=== PATIENT | male | born 1960 | race Caucasian/White ===

== ENCOUNTER → 2016-10-24 | Outpatient (CLI) | payer OTHER | LOC: FIMAGING 11:09 → EDSTATUS 11:10 | PROVIDERS: ATTEND Physical Medicine & Rehabilitation Neuromuscular Medicine | DX: M43.16 Spondylolisthesis, lumbar region (principal) ==

== ENCOUNTER → 2017-01-29 | Outpatient (CLI) | payer OTHER | LOC: FIMAGING 12:14 | PROVIDERS: ATTEND Orthopaedic Surgery Orthopaedic Surgery of the Spine | DX: Z01.818 Encounter for other preprocedural examination (principal); M51.36 Other intervertebral disc degeneration, lumbar region; M43.16 Spondylolisthesis, lumbar region ==

== ENCOUNTER 2017-02-14 17:15 | Observation (INO) | payer OTHER ==
--- NOTE | 2017-02-14 17:29 | EDPHY ---
H & P Time Seen by Provider: 02/14/17 17:26 HPI/ROS: Chief complaint. Overdose and altered mental status HPI. 56-year-old male here by EMS after her taking too many pain medications and another medication that the EMS brought with them called red maeng da which is marked not for human consumption. The patient had back surgery 4 days ago. He has been taking OxyContin 3 pills at a time every 3 hours. He has also been using Red Maeng Da. His family noticed that he was lethargic and really not responsive and not breathing very well. EMS found the patient have a pulse ox of 52% on room air. He was given Narcan total of 1 mg with good response and improvement of breathing. He arrived is still with a nasal trumpet and supplemental oxygen. His family says no other medical problems other than depression and he takes Effexor. His does not think that he is taken too many of those medications. ROS Constitutional. Generalized weakness Eyes. no problems with vision ENT. no sore throat, no nasal drainage Cardiovascular. no chest pain Respiratory. Decreased respirations Abdominal. no abdominal pain, no nausea/vomiting, no diarrhea . no problems urinating MS. no calf pain/swelling, no neck/back pain, no joint pain Skin. no rash Lymph. no swollen glands Neuro. Currently unable to walk or stand Past Medical/Surgical History: Recent back surgery and depression Social History: , no alcohol Smoking Status: Unknown if ever smoked Physical Exam: General Appearance: Alert but lethargic well-developed male with vital signs showing O2 saturation of 88% on 2 L. Moderate distress Eyes: Pupils equal and round no pallor or injection. ENT, Mouth: Mucous membranes are moist. Respiratory: No retractions but mild inspiratory expiratory rhonchi Cardiovascular: Regular rate and rhythm. Gastrointestinal: Abdomen is soft and nontender, no masses, bowel sounds normal. Neurological: Awake and alert, sensory and motor exams grossly normal. Skin: Warm and dry, no rashes. Musculoskeletal: Neck is supple nontender. Extremities symmetrical, full range of motion. Psychiatric: Patient is oriented X 3, there is no agitation. Constitutional: Initial Vital Signs Temperature (C) 36.9 C 02/14/17 17:15 Heart Rate 112 H 02/14/17 17:15 Respiratory Rate 28 H 02/14/17 17:15 Blood Pressure 149/96 H 02/14/17 17:15 O2 Sat (%) 88 L 02/14/17 17:15 O2 Delivery Mode Oxymask O2 (L/minute) 6 Allergies/Adverse Reactions: No Known Allergies Allergy (Unverified 02/14/17 17:20) Home Medications: Medication Instructions Recorded Effexor 02/14/17 Gabapentin 02/14/17 Oxycodone HCl 02/14/17 Valium 02/14/17 Wellbutrin Sr 02/14/17 morphINE 02/14/17 Medical Decision Making - Diagnostics EKG Interpretation: EKG interpreted by me shows sinus tachycardia with normal interval and axis. QRS is normal there is no significant ST elevation or depression. There is T- wave inversion in lead 3. Rate is 108 Imaging Results: One-view chest x-ray interpreted by me as normal. It is poor inspiration but I do not see any pneumonia Procedures: IV normal saline, monitor. Respiratory therapy to help with oxygenation. He is given further Narcan with improvement ED Course/Re-evaluation: --poison Control-- Stevan Saleh Poison Control will research this substance and call me back [facility] drug of concern--opioid like effects; watch for seizures, V/D, coma ; resolve within 6 hours, supportive care Patient's temperature was initially normal. And then on recheck is 38.6. Sepsis workup. Tylenol for fever Urine toxicology is positive for benzodiazepine, opiates, THC Patient was unable to urinate. Bladder scan shows 700 mL in his bladder. Quiles catheter is placed Patient is log-rolled over and his surgical incision is examined. Staple line is intact. No evidence for infection I have consulted and discussed the case with Dr. Duarte, hospitalist, who agrees to the admission I consulted and discussed the case with Dr. Rubin, fisheries management biologist, who will see the patient in the ICU I have placed a phone call to Dr. Lemus, patient's back surgeon though the phone call has not been returned yet Differential Diagnosis: Significant hypoxia probably secondary to opioid ingestion. No evidence for pneumonia. Further ingestion of Stevan Saleh which is a synthetic opioid. He has acute urinary retention. He has a fever. No evidence for sepsis. He has elevated troponin with a nonacute appearing EKG. Critical Care Time: Critical care time exclusive procedures 50 minutes - Data Points Laboratory Results: Laboratory Results 02/14/17 17:26 02/14/17 17:26 02/14/17 02/14/17 02/14/17 18:00 17:46 17:40 WBC RBC Hgb Hct MCV MCH MCHC RDW Plt Count MPV Neut % (Auto) Lymph % (Auto) Thomas % (Auto) Eos % (Auto) Baso % (Auto) Nucleat RBC Rel Count Absolute Neuts (auto) Absolute Lymphs (auto) Absolute Monos (auto) Absolute Eos (auto) Absolute Basos (auto) Absolute Nucleated RBC Immature Gran % Immature Gran # PT INR APTT VBG Lactic Acid 1.0 mmol/L mmol/L (0.7-2.1) Sodium Potassium Chloride Carbon Dioxide Anion Gap BUN Creatinine Estimated GFR Glucose Calcium Troponin I Urine Color YELLOW Urine Appearance HAZY Urine pH 5.0 (5.0-7.5) Ur Specific [place] 1.021 (1.002-1.030) Urine Protein 1+ H (NEGATIVE) Urine Ketones NEGATIVE (NEGATIVE) Urine Blood NEGATIVE (NEGATIVE) Urine Nitrate NEGATIVE (NEGATIVE) Urine Bilirubin NEGATIVE (NEGATIVE) Urine Urobilinogen NEGATIVE EU EU (0.2-1.0) Ur Leukocyte Esterase NEGATIVE (NEGATIVE) Urine RBC 3-5 /hpf H /hpf (0-3) Urine WBC 1-3 /hpf /hpf (0-3) Ur Epithelial Cells NONE SEEN /lpf /lpf (NONE-1+) Urine Bacteria TRACE /hpf H /hpf (NONE SEEN) Urine Mucus TRACE /lpf /lpf (NONE-1+) Urine Glucose NEGATIVE (NEGATIVE) Urine Opiates Screen NON-NEGATIVE H (NEGATIVE) Urine Barbiturates NEGATIVE (NEGATIVE) Ur Phencyclidine Scrn NEGATIVE (NEGATIVE) Ur Amphetamine Screen NEGATIVE (NEGATIVE) U Benzodiazepines Scrn NON-NEGATIVE H (NEGATIVE) Urine Cocaine Screen NEGATIVE (NEGATIVE) U Marijuana (THC) Screen NON-NEGATIVE H (NEGATIVE) 02/14/17 02/14/17 02/14/17 17:26 17:26 17:26 WBC 7.51 10^3/uL 10^3/uL (3.80-9.50) RBC 3.70 10^6/uL L 10^6/uL (4.40-6.38) Hgb 10.3 g/dL L g/dL (13.7-17.5) Hct 31.6 % L % (40.0-51.0) MCV 85.4 fL fL (81.5-99.8) MCH 27.8 pg L pg (27.9-34.1) MCHC 32.6 g/dL g/dL (32.4-36.7) RDW 13.9 % % (11.5-15.2) Plt Count 268 10^3/uL 10^3/uL (150-400) MPV 10.0 fL fL (8.7-11.7) Neut % (Auto) 74.6 % H % (39.3-74.2) Lymph % (Auto) 13.3 % L % (15.0-45.0) Thomas % (Auto) 10.4 % % (4.5-13.0) Eos % (Auto) 0.1 % L % (0.6-7.6) Baso % (Auto) 0.7 % % (0.3-1.7) Nucleat RBC Rel Count 0.0 % % (0.0-0.2) Absolute Neuts (auto) 5.60 10^3/uL 10^3/uL (1.70-6.50) Absolute Lymphs (auto) 1.00 10^3/uL 10^3/uL (1.00-3.00) Absolute Monos (auto) 0.78 10^3/uL 10^3/uL (0.30-0.80) Absolute Eos (auto) 0.01 10^3/uL L 10^3/uL (0.03-0.40) Absolute Basos (auto) 0.05 10^3/uL 10^3/uL (0.02-0.10) Absolute Nucleated RBC 0.00 10^3/uL 10^3/uL (0-0.01) Immature Gran % 0.9 % % (0.0-1.1) Immature Gran # 0.07 10^3/uL 10^3/uL (0.00-0.10) PT 14.7 SEC SEC (12.0-15.0) INR 1.15 (0.83-1.16) APTT 31.7 SEC SEC (23.0-38.0) VBG Lactic Acid Sodium 131 mEq/L L mEq/L (134-144) Potassium 4.5 mEq/L mEq/L (3.5-5.2) Chloride 94 mEq/L L mEq/L (97-110) Carbon Dioxide 25 mEq/l mEq/l (22-31) Anion Gap 12 mEq/L mEq/L (8-16) BUN 18 mg/dL mg/dL (7-23) Creatinine 1.3 mg/dL mg/dL (0.7-1.3) Estimated GFR 57 Glucose 195 mg/dL H mg/dL (70-100) Calcium 8.4 mg/dL L mg/dL (8.5-10.4) Troponin I 0.124 ng/mL H ng/mL (0-0.034) Urine Color Urine Appearance Urine pH Ur Specific [place] Urine Protein Urine Ketones Urine Blood Urine Nitrate Urine Bilirubin Urine Urobilinogen Ur Leukocyte Esterase Urine RBC Urine WBC Ur Epithelial Cells Urine Bacteria Urine Mucus Urine Glucose Urine Opiates Screen Urine Barbiturates Ur Phencyclidine Scrn Ur Amphetamine Screen U Benzodiazepines Scrn Urine Cocaine Screen U Marijuana (THC) Screen Departure - Departure Disposition: [facility] Inpatient Acute Clinical Impression: Acute urinary retention, Polysubstance abuse, Hypoxia, Elevated troponin Condition: Fair Referrals: Patient,NotPresent [Primary Care Provider] - As per Instructions
[2017-02-14] MEDS ORDERED: NALOXONE HCL 0.4 MG/ML INJ IVP ONE (17:35)
[2017-02-14 17:46] LABS: ANION GAP 12 mEq/L (8-16); CALCIUM 8.4 mg/dL (8.5-10.4); CARBON DIOXIDE 25 mEq/l (22-31); CHLORIDE 94 mEq/L (97-110); CREATININE 1.3 mg/dL (0.7-1.3); GLOMERULAR FILTRATION RATE 57; GLUCOSE 195 mg/dL (70-100); POTASSIUM 4.5 mEq/L (3.5-5.2); SODIUM 131 mEq/L (134-144)
[2017-02-14 17:47] LABS: INR 1.15 (0.83-1.16); PROTIME(PATIENT) 14.7 SEC (12.0-15.0)
[2017-02-14 17:48] LABS: APTT 31.7 SEC (23.0-38.0)
[2017-02-14 17:50] LABS: % IMMATURE GRANULYOCYTES 0.9 % (0.0-1.1); ABSOLUTE IMMATURE GRANULOCYTES 0.07 10^3/uL (0.00-0.10); ADD DIFF? NO; ADD MORPH? NO; ADD SCAN? YES; FRAGMENT RBC FLAG 0 (0-99); HEMATOCRIT 31.6 % (40.0-51.0); HEMOGLOBIN 10.3 g/dL (13.7-17.5); LEFT SHIFT FLG 30 (0-99); LIPEMIA HEMOLYSIS FLAG 80 (0-99); MEAN CELL HEMOGLOBIN 27.8 pg (27.9-34.1); MEAN CELL HEMOGLOBIN CONCENTR. 32.6 g/dL (32.4-36.7); MEAN CELL VOLUME 85.4 fL (81.5-99.8); PLATELET CLUMPS FLAG 0 (0-99); PLATELET COUNT 268 10^3/uL (150-400); RED CELL DISTRIBUTION WIDTH 13.9 % (11.5-15.2)
--- NOTE | 2017-02-14 17:50 | CPEKG ---
Heart Rate: 108 RR Interval: 556 P-R Interval: 144 QRSD Interval: 104 QT Interval: 364 QTC Interval: 488 P Buhl: 55 QRS Buhl: 67 T Wave Buhl: -12 EKG Severity - BORDERLINE ECG - EKG Impression: SINUS TACHYCARDIA EKG Impression: BORDERLINE T ABNORMALITIES, INFERIOR LEADS EKG Impression: BORDERLINE PROLONGED QT INTERVAL Electronically Signed By: Raymond Alvarado 14-Feb-2017 19:22:21
[2017-02-14 17:51] LABS: ATYPICAL LYMPHOCYTE FLAG 100 (0-99)
[2017-02-14 17:58] LABS: TROPONIN I 0.124 ng/mL (0-0.034)
[2017-02-14 18:28] LABS: COLOR YELLOW; LEUKOCYTE ESTERASE,URINE NEGATIVE (NEGATIVE); NITRITE,URINE NEGATIVE (NEGATIVE)
[2017-02-14 18:33] LABS: BACTERIA TRACE /hpf (NONE SEEN); MUCUS TRACE /lpf (NONE-1+)
[2017-02-14 18:36] LABS: SCAN NEGATIVE
[2017-02-14] MEDS ORDERED: NS 500 ML IV ONE (18:41)
[2017-02-14 19:04] LABS: BILIRUBIN,TOTAL 0.6 mg/dL (0.1-1.4)
[2017-02-14] MEDS ORDERED: ACETAMINOPHEN 650 MG SUPP PR PRN (19:32)
[2017-02-14] MEDS ORDERED: ACETAMINOPHEN 325 MG TAB PO PRN (19:32)
[2017-02-14] MEDS ORDERED: LORazepam 2 MG/ML INJ IVP PRN (19:32)
[2017-02-14] MEDS: NS 1,000 ML IV SCH (20:05)
--- NOTE | 2017-02-14 20:55 | GHP ---
[f rep st] HISTORY AND PHYSICAL DATE OF ADMISSION: 02/14/2017 CHIEF COMPLAINT: Found unconscious. HISTORY: This is a 56-year-old man who has no significant medical history other than depression and lumbar spondylolisthesis status post lumbar surgery by Dr. Caldwell on Thursday of this week pres enting with acute unresponsiveness and difficulty breathing. At the time of my evaluation, patient is awake and alert, but really does not remember anything for the last 24 hours. He states that he actually woke up thinking he was at a constitution party in [place]. He does note that since surgery 4 days ago eliceo apodaca has been taking OxyContin 3 pills at a time every 3 hours along with 4 mg of Kratom every 8 hours and that he had his sister giving him his medications and she was instructed to wake him up in order to take his pills. Apparently she was waking him up every 3 hours to have him continue to take his OxyContin because he was told by his doctor to stay ahead of the pain. He was found by EMS to have a pulse ox of 52% on room air and was brought emergently to the emergency department, where he was given Narcan with improvement of breathing and return of responsiveness. Again, at this time of my evaluation, patient is awake and alert and interactive and interacting appropriately despite not rem embering anything for the last 24 hours. PAST MEDICAL HISTORY: 1. Depression. 2. Lumbar spondylolisthesis status post recent lumbar surgery. 3. Chronic pain with continuous opiate use and dependency. PAST SURGICAL HISTORY: The lumbar back surgery. I am not certain of the details as there is nothin g in the record I can find. FAMILY HISTORY: This was reviewed and is unremarkable. SOCIAL HISTORY: The patient denies current tobacco use or heavy alcohol use. He does acknowledge u sing Kratom and marijuana. He previously lived in [place]. REVIEW OF SYSTEMS: 10-point review of systems obtained and negative, except as per HPI. It should be noted this is somewhat limited by patient's ongoing confusion. MEDICATIONS: 1. Wellbutrin. 2. Valium. 3. OxyContin. 4. Morphine. 5. Gabapentin. 6. Effexor. These doses are uncertain and some of these medications may be incorrect as this history is obtained from the patient who remains somewhat confused. ALLERGIES: No known drug allergies. PHYSICAL EXAM: VITAL SIGNS: BP 112/70, heart rate 99, respiratory rate 14, O2 sats 100% on 4 L. T emperature is 37. He was originally 88% on 4 L and again 57% in the field. GENERAL APPEARANCE: Millie ke, alert, oriented, though somewhat tangential and at times seems confused. EYES: Anicteric. HEN T: Oropharynx clear. CARDIOVASCULAR: Regular rate and rhythm. No MRG. PULMONARY: CTA bilateral ly. Normal work of breathing. ABDOMEN: Soft, nontender. Positive bowel sounds. EXTREMITIES: No clubbing, cyanosis, or edema. SKIN: Warm, dry, well perfused. Surgical incision site was not eloy luated by myself but per ER doc was noted to be clean, dry, and intact. NEURO/PSYCH: Again, patient is oriented and appropriate. He is awake. He does seem to be intermit tently tangential, however. CLINICAL DATA: Labs reviewed. Significant for white blood cell count of 7.5, hematocrit of 31.6, p latelets of 268. Coags are within normal limits. Lactic acid is 1. Chemistry is notable for a sod ium of 131. Troponin is 0.124. ProBNP is 232. U tox is positive for marijuana, benzos, and opiate s. Chest x-ray, personally reviewed and interpreted, shows poor inspiratory effort with no acute findin gs. EKG, personally reviewed and interpreted, shows sinus tachycardia. There are inferior T-wave invers ions. I do not have an old compare. ASSESSMENT/PLAN: This is a 56-year-old man with history of chronic pain, continuous opiate use and dependence, as well as recent lumbar surgery presenting with acute encephalopathy and acute hypoxic respiratory failure. 1. Acute hypoxic respiratory failure. This is in the setting of likely inadvertent opiate overdose complicated by concurrent use of Kratom, which is an herbal supplement which has opiate-like qualit ies and is not meant to be used in conjunction with opiates. It does sound as if patient was having his sister wake him up every 3 hours in order to give him his opiates and he was taking them whethe r he was in pain or not. This was discussed with him and he did not realize this was not the way th gerri medications were meant to be used. He is now saturating in the high 90s on 4 L. Chest x-ray do es not show any other etiology for his hypoxia other than hypoventilation. 2. Acute encephalopathy. Again, this is likely secondary to opiate overdose. This has improved sta tus post Narcan. He does remain a bit confused and tangential, however, with some tangential though t processes. Will continue to monitor. He has a nonfocal neurologic exam. 3. Elevated troponin with abnormal EKG. The patient does have some possibly ischemic EKG findings along with a troponin 0.124. This was in the setting of acute hypoxia and likely represents demand ischemia rather than acute coronary syndrome. He denies any chest pain. Nothing overtly changed on tele monitoring. Will continue to trend troponins and obtain an echocardiogram in the morning. Ca rdiology has been consulted and will see the patient in the morning likely. 4. Chronic pain with continuous opiate use and dependency. I do have concerns the patient may have issues with withdrawal and/or worsening pain if we discontinue opiates completely. Will order low- dose Dilaudid p.r.n. over the course of the evening given that this has a shorter half-life than his oxycodone. He and his sister will both need more counseling regarding how to use pain medications at the time of discharge. DISPOSITION: Inpatient status. Patient presenting high risk with significant hypoxemia and opiate overdose. Patient is new to my care. Old records reviewed and summarized as per HPI and past medical history. Care plan reviewed with ER physician, including plans for ICU admission. /[id number]/MODL
[2017-02-14] MEDS ORDERED: oxyCODONE IR 5 MG TAB PO PRN (21:02)
[2017-02-14] MEDS ORDERED: DIAZEPAM 2 MG TAB PO PRN (21:03)
[2017-02-14] MEDS ORDERED: HYDROmorphONE/DILAUDID 1 MG/ML SYR IVP PRN (21:03)
[2017-02-14] MEDS: GABAPENTIN 300 MG CAP PO SCH (23:00)
[2017-02-14] MEDS: ACETAMINOPHEN 500 MG TAB PO PRN (23:00)
[2017-02-14 23:31] LABS: ALBUMIN 3.2 g/dL (3.5-5.0); ANION GAP 10 mEq/L (8-16); CALCIUM 7.7 mg/dL (8.5-10.4); CARBON DIOXIDE 23 mEq/l (22-31); CHLORIDE 99 mEq/L (97-110); CREATININE 1.1 mg/dL (0.7-1.3); GLOMERULAR FILTRATION RATE > 60; GLUCOSE 123 mg/dL (70-100); MAGNESIUM 2.1 mg/dL (1.6-2.3); POTASSIUM 4.1 mEq/L (3.5-5.2); SODIUM 132 mEq/L (134-144)
[2017-02-14 23:41] LABS: TROPONIN I 0.175 ng/mL (0-0.034)
--- NOTE | 2017-02-15 05:24 | CPEKG ---
Heart Rate: 69 RR Interval: 870 P-R Interval: 172 QRSD Interval: 108 QT Interval: 440 QTC Interval: 472 P Garner: 47 QRS Garner: 50 T Wave Garner: 25 EKG Severity - BORDERLINE ECG - EKG Impression: SINUS RHYTHM EKG Impression: BORDERLINE T WAVE ABNORMALITIES Electronically Signed By: Ranjan Hogan 16-Feb-2017 09:07:48
[2017-02-15] MEDS: NS 1,000 ML IV SCH (05:29)
[2017-02-15 05:38] LABS: % IMMATURE GRANULYOCYTES 0.9 % (0.0-1.1); ABSOLUTE IMMATURE GRANULOCYTES 0.05 10^3/uL (0.00-0.10); ADD DIFF? NO; ADD MORPH? NO; ADD SCAN? NO; ATYPICAL LYMPHOCYTE FLAG 60 (0-99); FRAGMENT RBC FLAG 0 (0-99); HEMATOCRIT 25.1 % (40.0-51.0); HEMOGLOBIN 8.3 g/dL (13.7-17.5); LEFT SHIFT FLG 20 (0-99); LIPEMIA HEMOLYSIS FLAG 80 (0-99); MEAN CELL HEMOGLOBIN 28.2 pg (27.9-34.1); MEAN CELL HEMOGLOBIN CONCENTR. 33.1 g/dL (32.4-36.7); MEAN CELL VOLUME 85.4 fL (81.5-99.8); MEAN PLATELET VOLUME 9.2 fL (8.7-11.7); PLATELET CLUMPS FLAG 0 (0-99); PLATELET COUNT 186 10^3/uL (150-400); RED BLOOD CELL COUNT 2.94 10^6/uL (4.40-6.38); RED CELL DISTRIBUTION WIDTH 13.6 % (11.5-15.2)
[2017-02-15 05:53] LABS: ANION GAP 9 mEq/L (8-16); CALCIUM 7.7 mg/dL (8.5-10.4); CARBON DIOXIDE 24 mEq/l (22-31); CHLORIDE 101 mEq/L (97-110); GLOMERULAR FILTRATION RATE > 60; GLUCOSE 108 mg/dL (70-100); MAGNESIUM 2.3 mg/dL (1.6-2.3); POTASSIUM 3.9 mEq/L (3.5-5.2); SODIUM 134 mEq/L (134-144)
[2017-02-15 06:04] LABS: TROPONIN I 0.089 ng/mL (0-0.034)
[2017-02-15] MEDS: GABAPENTIN 300 MG CAP PO SCH (08:07)
--- NOTE | 2017-02-15 08:08 | SOAPPROG ---
ALBERTO Progress Note Assessment/Plan: Assessment: Plan: 02/15/17 08:04 I have not seen nor examined the patient yet, but for clarification, these are the following medications given from my office postoperatively: MSContin 30 mg po q 12hrs. Percocet 5mg, 1-2 po q 6hrs prn pain. Valium 5mg , 1 po q 8 hrs prn muscle spasms. Neurontin 300mg,1 po bid. Keflex 500mg, 1 po qid x 3 days (Pt should be finished with these). I will see and examine pt today. Objective: Vital Signs Temp Pulse Resp BP Pulse Ox 37.6 C 72 18 110/70 96 02/15/17 04:00 02/15/17 06:00 02/15/17 06:00 02/15/17 06:00 02/15/17 06:00 Laboratory Results 02/15/17 05:30 02/15/17 05:30 02/14/17 02/15/17 02/16/17 05:59 05:59 05:59 Intake Total 2750 Output Total 1350 Balance 1400 PT 14.7 SEC (12.0-15.0) 02/14/17 17:26 INR 1.15 (0.83-1.16) 02/14/17 17:26 ICD10 Worksheet Patient Problems: Problems Problem Status Onset Acute urinary retention Acute Elevated troponin Acute Hypoxia Acute Polysubstance abuse Acute
[2017-02-15] MEDS ORDERED: BISACODYL 5 MG EC TAB PO SCH (09:00)
[2017-02-15] MEDS ORDERED: VENLAFAXINE XR 37.5 MG CAP PO SCH (09:00)
[2017-02-15] MEDS ORDERED: DOCUSATE SODIUM 100 MG CAP PO SCH (09:00)
[2017-02-15] MEDS ORDERED: buPROPion SR 150 MG TAB PO SCH (09:00)
[2017-02-15] MEDS ORDERED: ENOXAPARIN 40 MG/0.4 ML SYR SC SCH (09:00)
--- NOTE | 2017-02-15 10:31 | GCON ---
[f rep st] CONSULTATION CARDIOLOGY CONSULTATION. DATE OF CONSULTATION: 02/15/2017 INDICATION: Elevated troponin. HISTORY OF PRESENT ILLNESS: The patient is 56 years old, and is currently admitted with hypoxic res piratory failure. On Thursday of last week, he underwent lumbar spine surgery. Apparently, he had a single level fusion performed. For the last several days, he has been taking high doses of OxyCont in. Per the medical record, he has been taking 3 OxyContin tablets every 3 hours, along with a Chin gerri herb, called Jesúsmollyphoebe. Apparently with this combination of medications, he became very somnolent. His sister has been taking care of him and was waking him up to administer the OxyContin. Sorin justice, she called EMS due to difficulty in arousing him. When they arrived, his oxygen saturations we re 52% on room air. After being brought to the emergency department here, he was administered Narca n, this improved his respiratory status and his oxygen saturations. On arrival, an electrocardiogra m was performed. That ECG demonstrated normal sinus tachycardia at 108 beats per minute. There wer e minor nonspecific ST and T changes noted. An electrocardiogram from this morning at 8:30, mariia rated sinus rhythm, also with minor nonspecific ST and T changes. Overnight, he had cardiac enzymes trended. On arrival his troponin was 0.124, at 10:50 last night his troponin was 0.175, and this m orning at 5:30 a.m. troponin 0.089. He states that he has no documented cardiovascular disease. At no time did he have chest pain or chest pressure. He used to work for [employer], and appa rently had an annual cardiac workup, and was never told that he had any form of structural or ischem ic heart disease. At his baseline, prior to developing significant back pain, he used to be very ac tive, competing in triathlons and never really had any difficulty. Overnight, he has been hemodynam ically stable. CARDIAC RISK FACTORS: Include only his gender. He has no history of diabetes, hypertension, hyperl ipidemia, or strong family history of premature atherosclerosis. He never used to smoke. REVIEW OF SYSTEMS: A 10-point review of systems was performed and was otherwise negative. PAST MEDICAL HISTORY: 1. Depression. 2. Lumbar spine pain, status post recent surgery. 3. Chronic pain with chronic opioid use and dependency. PAST SURGICAL HISTORY: He has had previous carpal tunnel surgery in both hands, as well as his rece nt lumbar spine surgery. FAMILY HISTORY: His parents both had cardiovascular illnesses in their 70s and 80s. SOCIAL HISTORY: He does not abuse alcohol or tobacco. He does use marijuana, and apparently uses K ratom. HOME MEDICATIONS: These are detailed on the chart, and not repeated here. ALLERGIES: None. PHYSICAL EXAMINATION: VITAL SIGNS: Today his blood pressure is 111/71, his heart rate is in the 70 s. Oxygen saturations on room air 97%. He is afebrile. GENERAL: He is a healthy male, in no acut e distress. HEENT: Normocephalic, atraumatic. He has anicteric sclerae. His oropharynx unremarka ble. Carotids are 2+ bilaterally, with no bruits. He has no adenopathy or thyromegaly. RESPIRATOR Y: He is breathing easily, resting comfortably, he speaks in full sentences. He is using no accessary muscle s. On auscultation, he has clear lung power bilaterally. CARDIAC: Precordial inspection is unrem arkable. PMI is nondisplaced. On auscultation, he has a regular rate and rhythm, without murmurs, gallops or rubs. ABDOMEN: Soft, nontender. He has no masses. EXTREMITIES: Without edema and well perfused. NEUROLOGIC: He is alert, oriented, pleasant mood and affect. DATABASE: Pertinent labs are detailed above. IMPRESSION: The patient is 56 years old. He recently underwent lumbar spine surgery, and presents now with an acute hypoxic respiratory failure, likely related to narcotic overdose, compounded by th e use of Kratom, which apparently has significant narcotic effects as well. After administration of Narcan and withholding of his narcotic analgesics, he appears to have improved dramatically. Karina g this process he suffered a type 2 non-ST elevation myocardial infarction related to supply and dem and, in the setting of severe hypoxemia. His ECG was unremarkable. He had no significant chest evon n. RECOMMENDATIONS: 1. Apparently an echocardiogram was done this morning. I would like to review that. 2. Provided his echocardiogram is unremarkable, I think he can be discharged home with close follow up. I gave him contact information for my office. 3. As an outpatient, I would like him to have a stress myocardial perfusion imaging study. 4. Further recommendations to be made following completion of his outpatient workup. /[id number]/MODL
--- NOTE | 2017-02-15 11:20 | HOSPPROG ---
Hospitalist Progress Note Assessment/Plan: #Acute hypoxic resp failure: due to unintentional opioid overdose #Acute toxic encephalopathy: resolved. Due to opioids and herbal supplement Kratom #Acute on chronic back pain: concern that he as been abusing opioids along with THC. At risk for withdrawal, so will cont some opioids, reduce Gabapentin frequency #Indeterminate trop: likely due to acute hypoxia. Will review TTE. Cardiology consulted and can FU as outpatient #Post op Day #5 : L4, judd/TLIF, posterior fusion. Dr. Lemus recommends SNF placement. Case management assisting #Diet: regular #DVT ppx: ambulatory #Disp: warrants inpt admission with uncontrolled pain, PT/OT Subjective: no CP or SOB Objective: Vital Signs Temp Pulse Resp BP Pulse Ox 36.4 C 75 16 111/71 97 02/15/17 08:00 02/15/17 08:00 02/15/17 08:00 02/15/17 08:00 02/15/17 08:00 Laboratory Results 02/15/17 05:30 02/15/17 05:30 02/14/17 02/15/17 02/16/17 05:59 05:59 05:59 Intake Total 2750 Output Total 1350 Balance 1400 PT 14.7 SEC (12.0-15.0) 02/14/17 17:26 INR 1.15 (0.83-1.16) 02/14/17 17:26 - Physical Exam Constitutional: no apparent distress Eyes: PERRL (pupils small but reactive) Ears, Nose, Mouth, Throat: moist mucous membranes Cardiovascular: regular rate and rhythym Respiratory: no respiratory distress, no rales or rhonchi Gastrointestinal: normoactive bowel sounds, soft, non-tender abdomen Genitourinary: no bladder fullness, no bladder tenderness Skin: warm Musculoskeletal: full muscle strength, other (back brace in place) Neurologic: AAOx3, CN II-XII Intact Psychiatric: interacting appropriately Lymph, Heme, Immunologic: no cervical LAD ICD10 Worksheet Patient Problems: Problems Problem Status Onset Acute urinary retention Acute Elevated troponin Acute Hypoxia Acute Polysubstance abuse Acute
--- NOTE | 2017-02-15 11:20 | SOAPPROG ---
ALBERTO Progress Note Assessment/Plan: Assessment: Plan: 02/15/17 08:04 I have not seen nor examined the patient yet, but for clarification, these are the following medications given from my office postoperatively: MSContin 30 mg po q 12hrs. Percocet 5mg, 1-2 po q 6hrs prn pain. Valium 5mg , 1 po q 8 hrs prn muscle spasms. Neurontin 300mg,1 po bid. Keflex 500mg, 1 po qid x 3 days (Pt should be finished with these). I will see and examine pt today. 02/15/17 11:16 Post op day 5, s/p L4-5 lami/tlif/posterior fusion/instrumentation with inadvertant narcotic overdose. Pt doing much better. However, he is not responsible enough to take care of himself. Pt has BLE neuro pain too. Gabepentin helping, but gait difficulties intermittently due to pain. Constipation. Plan for stool softeners and possible ] suppository. Bladder retention improved but still at risk given narcotic need. I recommend a SNF for approx 1 week until pt can become independent and responsible enough to care for himself. Subjective: Pt complains of BLE pain (hamstrings). Objective: Vital Signs Temp Pulse Resp BP Pulse Ox 36.4 C 75 16 111/71 97 02/15/17 08:00 02/15/17 08:00 02/15/17 08:00 02/15/17 08:00 02/15/17 08:00 Laboratory Results 02/15/17 05:30 02/15/17 05:30 02/14/17 02/15/17 02/16/17 05:59 05:59 05:59 Intake Total 2750 Output Total 1350 Balance 1400 PT 14.7 SEC (12.0-15.0) 02/14/17 17:26 INR 1.15 (0.83-1.16) 02/14/17 17:26 BLE motor 5/5. Francesco's negative x 2. SLR mildly positive bilaterally. Abdomen: few bowel sounds. ICD10 Worksheet Patient Problems: Problems Problem Status Onset Acute urinary retention Acute Elevated troponin Acute Hypoxia Acute Polysubstance abuse Acute
[2017-02-15] MEDS ORDERED: OXYCODONE/APAP 5/325 TAB PO PRN (11:23)
[2017-02-15] MEDS ORDERED: DIAZEPAM 5 MG TAB PO PRN (11:26)
--- NOTE | 2017-02-15 11:50 | ECHO ---
[id number] + + [id number] : : [place] [address] : : [phone] + + Adult Echocardiographic Report + -+ :Name: MONICA GONZALEZjim Date: 02/15/2017 08:39 AM BP: 111/71 mmHg : : Hospital Admission Number: [id number] : :: 1960 Gender: Male Height: 68 in : :Age: 56 yrs Race: WH Weight: 180 lb : :Reason For Study: elev trop : : BSA: 2.0 meters 2: :History: elev trop : + -+ MMode/2D Measurements \T\ Calculations IVSd: 1.4 cm RVDd: 3.8 cm FS: 42.1 % Ao root diam: LVPWd: 1.1 cm LVIDd: 3.7 cm EDV(Teich): 3.6 cm LVIDs: 2.1 cm 56.3 ml ESV(Teich): 14.7 ml EF(Teich): 74.0 % LVLd ap4: 9.8 cm SV(MOD-sp4): EDV(MOD-sp4): 125.0 ml 175.0 ml LVLs ap4: 7.9 cm ESV(MOD-sp4): 50.0 ml EF(MOD-sp4): 71.4 % Normal Measurement Values: + + :LVIDd (3.5-5.7cm) IVSd (0.6-1.1cm) LVPWd (0.6-1.1cm) Aortic Root (2.0-3.7cm)Left Atrium (1.5-4.0cm): :LV Vol(d) (76-115ml) LV Vol(s) (29-48ml) Ejec Fraction (50-65%)PV Aiden (0.6- 1.2m/s) TV Aiden (0.4-1.0m/s) : :MV E Aiden (0.8-1.0m/s)MV A Aiden (0.3-1.0m/s)LVOT Aiden (0.7-1.2m/s) Asc Ao Aiden ( 0.9-1.8m/s) : + + Doppler Measurements \T\ Calculations MV E max aiden: Ao V2 max: LV V1 max: PA V2 max: 70.1 cm/sec 131.7 cm/sec 125.9 cm/sec 93.1 cm/sec MV A max aiden: Ao max PG: LV V1 max PG: PA max P.7 cm/sec 6.9 mmHg 6.3 mmHg 3.5 mmHg MV E/A: 1.2 MV dec time: 0.23 sec TR max aiden: 271.5 cm/sec TR max P.5 mmHg RAP systole: 10.0 mmHg RVSP(TR): 39.5 mmHg Left Ventricle Hyperdynamic LV systolic function with normal LV size. There is mild concentric left ventricular hypertrophy. Ejection Fraction = 70-75%. No regional wall motion abnormalities noted. Right Ventricle The right ventricle is normal in size and function. Atria The left atrium is mildly dilated. The Left Atrial Volume is 39 ml/m2. Right atrial size is normal. A dilated inferior vena cava suggests increased right atrial pressure. Mitral Valve The mitral valve is normal in structure and function. There is no mitral valve stenosis. Trivial MR without MV prolapse. Tricuspid Valve The tricuspid valve is normal in structure and function. There is no tricuspid stenosis. Mild to moderate TR with estimated PAS 38mmHg consistent with upper normal PA pressures. Aortic Valve The aortic valve is trileaflet. There is no aortic stenosis. There is no aortic insufficiency. Pulmonic Valve The pulmonic valve is not well visualized. Trace pulmonic valvular regurgitation. Great Vessels The aortic root is normal size. Borderline enlarged ascending thoracic aorta (3.6cm). Pericardium/Pleural There is no pericardial effusion. Conclusion A two-dimensional transthoracic echocardiogram with M-mode and Doppler was performed. 1)Hyperdynamic LV systolic function with a LVEF of 71% and normal wall motions. 2)Mild concentric LVH noted. 3)Mild LAE noted. 4)Trivial MR without MV prolapse. 5)Mild to moderate TR with upper normal PA pressures. 6)Borderline enlarged ascending thoracic aorta (3.6cm). Final Reading Physician: Farhan Lima electronically signed on 02/15/2017 11:49 AM Ordering Physician: Meg Preston Performed By: Awilda Belle
[2017-02-15] MEDS ORDERED: MAGNESIUM HYDROXIDE 30 ML UDCUP PO PRN (14:21)
[2017-02-15] MEDS ORDERED: LACTULOSE 20 GM/30 ML UDCUP PO PRN (14:21)
[2017-02-15] MEDS ORDERED: BISACODYL 10 MG SUPP PR PRN (14:21)
[2017-02-15] MEDS ORDERED: POLYETHYLENE GLYCOL 3350 17 GM PKT PO PRN (14:21)
--- NOTE | 2017-02-15 14:40 | PDIAF ---
- Diagnosis Diagnosis: hypoxia, encephalopathy Code Status: Full Code - Medication Management Discharge Medications: Medications to Continue on Transfer Acetaminophen [Tylenol ES 500 mg (*)] 1,000 mg PO Q8 PRN 02/14/17 [Last Taken 20:00] Bisacodyl [Bisacodyl (*)] 5 mg PO DAILY 02/14/17 [Last Taken 02/13/17 20:00] Diazepam [Valium 5 MG (*)] 5 mg PO TID PRN 02/14/17 [Last Taken 02/14/17 06:40 7.5mg] Docusate Sodium [Colace 100 MG (*)] 200 mg PO BID 02/14/17 [Last Taken 02/13/17 20:00] Gabapentin [Neurontin 300 MG (*)] 300 mg PO TID 02/14/17 [Last Taken 02/14/17 10 :40] Herbals/Supplements -Info Only 1 ea PO DAILY 02/14/17 [Last Taken Unknown] Levomefolate/Algal Oil [Deplin-Algal Oil 15 mg Capsule] 2 each PO DAILY [Last Taken 02/14/17] Venlafaxine Xr [Effexor Xr 37.5MG (*)] 37.5 mg PO DAILY 02/14/17 [Last Taken 10:40] buPROPion SR [Wellbutrin 150mg SR (*)] 150 mg PO DAILY 02/14/17 [Last Taken 10:40] morphINE SR [MS Contin/Oramorph SR 30 mg (*)] 30 mg PO BID 02/14/17 [Last Taken 02/14/17 08:00] oxyCODONE IR [Oxycodone Ir (*)] 5 mg PO Q6 PRN 02/14/17 [Last Taken 02/14/17 10: 40 2.5mg] Discharge Medications: Refer to the Discharge Home Medication list for PRN reason. - Orders Services needed: Registered Nurse, Master Linux System Administrator, Physical Therapy Diet Recommendation: no restrictions on diet Diet Texture: Regular Texture Diet - Follow Up Care Current Providers and Referrals: Patient,NotPresent [Primary Care Provider] - As per Instructions Libertad Lemus MD [Medical Doctor] -
[2017-02-15] MEDS: ACETAMINOPHEN 500 MG TAB PO PRN (15:37)
[2017-02-15 15:38] VITALS: BP 115/73; PULSE 75; RESP 18; TEMP 98.5; O2SAT 96
--- NOTE | 2017-02-15 15:40 | GDS ---
[f rep st] DISCHARGE SUMMARY DISCHARGE DIAGNOSES: 1. Acute toxic encephalopathy. 2. Acute hypoxic respiratory failure. 3. Icaku-lh-qchwbzn back pain. 4. Intermittent troponin. 5. Postoperative day 5, L4, lami/TLIF, posterior fusion. HISTORY OF PRESENT ILLNESS: Patient is a 56-year-old male, with history of chronic back pain. He is postop day 5 from lami/TLIF posterior fusion by Dr. Caldwell, who presented with acute unresponsiveness and difficulty breathing. At the time of initial evaluation, patient was awake, but did not really remember anything in the last 24 hours. He said that he woke up and thought he was at a alliance party in [place]. Since surgery, he has been taking oxycodone 3 pills every 3 hours, along with 4 mg of Kratom every 8 hours. Kratom is an herbal supplement he bought off line, that is supposed to help with pain. EMS found him at 52% on room air, and he was given Narcan, with improvement of breathing and return of responsiveness. HOSPITAL COURSE BY PROBLEM: 1. Acute hypoxic respiratory failure: due to inadvertent opiate overdose and concurrent use of Kratom, which is an herbal supplement with opiate-like qualities. It appears he was taking these medications whether he was in pain or not. The patient is now stable on room air. No evidence of infection on x- ray. 2. Acute toxic encephalopathy secondary to excessive opioid and herbal supplementation. This resolved with Narcan. The patient is alert and oriented x3. 3. Indeterminate troponin. He did have T-wave inversions in the inferior leads , with troponin of 0.12. It appears this is likely in the setting of acute hypoxia. Echocardiogram demonstrated no wall motion abnormalities. Mild TR. Patient may follow up with Cardiology as an outpatient, who evaluated him here. No cardiac stress at this time is warranted. 4. Chronic pain with continuous opioid dependency. There is concern that patient could withdrawal from these medications. Dr. Caldwell resumed his MS Contin, reduced dose of oxycodone, as well as gabapentin. The patient was educated to use pain medications only when needing them, not [id number]. Dr. Caldwell's wishes, patient will be discharged to inpatient rehab to better manage pain control. 5. Status post lumbar fusion. Again, per Dr. Caldwell's recommendation, he will be discharged to a SNF. He will follow up with her. DIET: Regular. FOLLOWUP: 1. Dr. Caldwell. 2. Follow up with Cardiology. /[id number]/MODL MTDD
[2017-02-15] MEDS ORDERED: morphINE SR 30 MG TAB PO SCH (21:00)
[2017-02-15] MEDS ORDERED: SENNOSIDES/DOCUSATE SODIUM TAB PO SCH (21:00)
[2017-02-15] MEDS ORDERED: GABAPENTIN 300 MG CAP PO SCH (21:00)
== END 2017-02-15 17:45 ==
LOC: EDUNIT# → INTOOBSV 18:46 → F2N 19:23
PROVIDERS: ADMIT Internal Medicine; ATTEND Internal Medicine
DX: G92 Toxic encephalopathy (principal); J96.00 Acute respiratory failure, unspecified whether with hypoxia or hypercapnia; T40.0X1A Poisoning by opium, accidental (unintentional), initial encounter; T50.901A Poisoning by unspecified drugs, medicaments and biological substances, accidental (unintentional), initial encounter; G89.29 Other chronic pain; M54.9 Dorsalgia, unspecified; R33.9 Retention of urine, unspecified; R79.9 Abnormal finding of blood chemistry, unspecified; I24.8 Other forms of acute ischemic heart disease; R94.31 Abnormal electrocardiogram [ECG] [EKG]; M43.16 Spondylolisthesis, lumbar region; F32.9 Major depressive disorder, single episode, unspecified; Z82.49 Family history of ischemic heart disease and other diseases of the circulatory system; Z98.890 Other specified postprocedural states; Z98.1 Arthrodesis status
CPT/HCPCS: 71010; 93005; 93306; 97116; 97162; 97166; G0378; 80305; 96374; J1650

== ENCOUNTER → 2017-03-19 | Outpatient (CLI) | payer OTHER | LOC: FIMAGING 13:37 | PROVIDERS: ATTEND Orthopaedic Surgery Orthopaedic Surgery of the Spine | DX: Z09 Encounter for follow-up examination after completed treatment for conditions other than malignant neoplasm (principal); Z98.1 Arthrodesis status ==

== ENCOUNTER → 2017-06-03 | Outpatient (CLI) | payer OTHER | LOC: FIMAGING 11:36 | PROVIDERS: ATTEND Orthopaedic Surgery Orthopaedic Surgery of the Spine | DX: Z98.1 Arthrodesis status (principal) ==

== ENCOUNTER → 2017-09-09 | Outpatient (CLI) | payer OTHER | LOC: FIMAGING 11:55 | PROVIDERS: ATTEND Orthopaedic Surgery Orthopaedic Surgery of the Spine | DX: Z09 Encounter for follow-up examination after completed treatment for conditions other than malignant neoplasm (principal); Z98.1 Arthrodesis status ==

== ENCOUNTER → 2018-02-08 | Outpatient (CLI) | payer OTHER | LOC: FIMAGING 12:10 | PROVIDERS: ATTEND Orthopaedic Surgery Orthopaedic Surgery of the Spine | DX: M96.1 Postlaminectomy syndrome, not elsewhere classified (principal); Z98.1 Arthrodesis status ==